=== PATIENT | female | born 1975 | race American Indian/Alaskan Native ===

== ENCOUNTER 2019-11-17 19:19 | Emergency (ER) | payer SELFPAY ==
[2019-11-17 19:28] VITALS: BP 131/85
--- NOTE | 2019-11-17 19:43 | Emergency Department Report ---
Blank Doc - Documentation Documentation: 44-year-old female that presents with URI symptoms with fever and tachycardia. This initial assessment/diagnostic orders/clinical plan/treatment(s) is/are subject to change based on patient's health status, clinical progression and re- assessment by fellow clinical providers in the ED. Further treatment and workup at subsequent clinical providers discretion. Patient/guardians urged not to elope from the ED as their condition may be serious if not clinically assessed and managed. Initial orders include: 1- Patient sent to [facility] for further evaluation and treatment 2- xrays
--- NOTE | 2019-11-17 21:12 | XRay Report ---
CHEST 2 VIEWS INDICATION / CLINICAL INFORMATION: cough. COMPARISON: None available. FINDINGS: SUPPORT DEVICES: None. HEART / MEDIASTINUM: No significant abnormality. LUNGS / PLEURA: No significant pulmonary or pleural abnormality. No pneumothorax. ADDITIONAL FINDINGS: No significant additional findings. IMPRESSION: No acute finding. Signer Name: Stevie Stanford MD Signed: 11/17/2019 9:07 PM Workstation Name: [id number]
--- NOTE | 2019-11-17 22:39 | Emergency Department Report ---
- General Chief Complaint: Upper Respiratory Infection Stated Complaint: FLU Time Seen by Provider: 11/17/19 19:43 Source: patient Mode of arrival: Ambulatory Limitations: No Limitations - History of Present Illness Initial Comments: pt is a 44 yo who presents to the ED with c/o flu like symptoms that began 4 days ago. she has associated nausea, one episode of vomiting, lightheadedness, episodes of chills/diaphoresis, headache, congestion, and dry cough. she denies any rhinorrhea, sore throat, ear pain, or v/d. she states she has not been able to eat or drink very much secondary to the nausea. she states she attempted to take mucinex once and that is when she had the episode of vomiting. PMHx DM. no allergies to meds. LNMP 11/25/19. - Related Data Previous Rx's Medication Instructions Recorded Last Taken Type Ondansetron [Zofran Odt] 4 mg PO Q8HR PRN #14 tab.rapdis 11/17/19 Unknown Rx Allergies Allergy/AdvReac Type Severity Reaction Status Date / Time No Known Allergies Allergy Unverified 11/17/19 19:44 ED Review of Systems ROS: Stated complaint: FLU Other details as noted in HPI Comment: All other systems reviewed and negative ED Past Medical Hx - Past Medical History Previous Medical History?: Yes Hx Diabetes: Yes - Surgical History Past Surgical History?: No - Social History Smoking Status: Current Every Day Smoker Substance Use Type: None - Medications Home Medications: Home Medications Medication Instructions Recorded Confirmed Last Taken Type Ondansetron [Zofran Odt] 4 mg PO Q8HR PRN #14 tab.sundardis 11/17/19 Unknown Rx ED Physical Exam - General Limitations: No Limitations General appearance: alert, in no apparent distress - Head Head exam: Present: atraumatic, normocephalic - Eye Eye exam: Present: normal appearance - ENT ENT exam: Present: normal orophraynx, mucous membranes moist, TM's normal bilaterally, normal external ear exam - Respiratory Respiratory exam: Present: normal lung sounds bilaterally. Absent: respiratory distress, wheezes, rales, rhonchi, stridor, chest wall tenderness, accessory muscle use, decreased breath sounds, prolonged expiratory - Cardiovascular Cardiovascular Exam: Present: regular rate, normal rhythm, normal heart sounds. Absent: systolic murmur, diastolic murmur, rubs, gallop - Neurological Exam Neurological exam: Present: alert, oriented X3 - Psychiatric Psychiatric exam: Present: normal affect, normal mood - Skin Skin exam: Present: warm, dry, intact ED Course Vital Signs 11/17/19 11/17/19 19:27 22:48 Temperature 99.5 F Pulse Rate 110 H 92 H Respiratory 20 17 Rate Blood Pressure 131/85 O2 Sat by Pulse 98 98 Oximetry ED Medical Decision Making - Radiology Data Radiology results: report reviewed CHEST 2 VIEWS INDICATION / CLINICAL INFORMATION: cough. COMPARISON: None available. FINDINGS: SUPPORT DEVICES: None. HEART / MEDIASTINUM: No significant abnormality. LUNGS / PLEURA: No significant pulmonary or pleural abnormality. No pneumothorax. ADDITIONAL FINDINGS: No significant additional findings. IMPRESSION: No acute finding. Signer Name: Stevie Stanford MD Signed: 11/17/2019 9:07 PM Workstation Name: [id number] Transcribed By: TATE Dictated By: Stevie Stanford MD Electronically Authenticated By: Stevie Stanford MD Signed Date/Time: 11/17/192106 DD/ 06 TD/TT: - Medical Decision Making pt is a 44 yo who presents to the ED with c/o flu like symptoms that began 4 days ago. she has associated nausea, one episode of vomiting, lightheadedness, episodes of chills/diaphoresis, headache, congestion, and dry cough. she denies any rhinorrhea, sore throat, ear pain, or v/d. she states she has not been able to eat or drink very much secondary to the nausea. she states she attempted to take mucinex once and that is when she had the episode of vomiting. PMHx DM. no allergies to meds. LNMP 11/25/19. initial triage vitals with mild tachycardia which improved upon repeat. no abnormality on physical examination as documented in chart. CXR: No acute finding. Patient has clinical signs and symptoms of influenza. She is out of the 48-hour range for Tamiflu. Patient is requesting something that she can take for nausea. no clinical signs of dehydration, mucus membranes moist, no hypotension. Advised patient to please take medication as prescribed as needed. May take Mucinex during the day and TheraFlu nighttime at night. Increase your fluid intake over the next several days. Eat a bland diet. May alternate Tylenol and ibuprofen every 4-6 hours as needed for a fever. follow up with a primary care doctor. Return to the emergency room for any new or worsening symptoms. - Differential Diagnosis URI, PNA, viral syndrome, influenza, acute bronchitis, strep, otitis Critical care attestation.: If time is entered above; I have spent that time in minutes in the direct care of this critically ill patient, excluding procedure time. ED Disposition Clinical Impression: Influenza Disposition: DC-01 TO HOME OR SELFCARE Is pt being admited?: No Does the pt Need Aspirin: No Condition: Stable Instructions: Influenza (ED) Additional Instructions: please take medication as prescribed as needed. May take Mucinex during the day and TheraFlu nighttime at night. Increase your fluid intake over the next several days. Eat a bland diet. May alternate Tylenol and ibuprofen every 4-6 hours as needed for a fever. follow up with a primary care doctor. Return to the emergency room for any new or worsening symptoms. Prescriptions: Ondansetron [Zofran Odt] 4 mg PO Q8HR PRN #14 tab.rapdis PRN Reason: Nausea And Vomiting Referrals: TWIN QUINONEZ MD [Staff Physician] - 2-3 Days [facility] [Outside] - 2-3 Days [facility] [Outside] - 2-3 Days Forms: Accompanied Note, Work/School Release Form(ED) Time of Disposition: 22:42 Print Language: SLOVENIAN
== END 2019-11-17 22:48 | disposition home or self-care (01) ==
LOC: ED 19:19
DX: J11.1 Influenza due to unidentified influenza virus with other respiratory manifestations (principal); E11.9 Type 2 diabetes mellitus without complications; F17.200 Nicotine dependence, unspecified, uncomplicated; Z79.899 Other long term (current) drug therapy
CPT/HCPCS: 71046; 99283